=== PATIENT | female | born 1960 | race Caucasian/White ===

== ENCOUNTER → 2017-03-29 | Outpatient (CLI) | payer OTHER ==
[~2017-03-29] MED LIST: ADIPEX-P37.5 M1 PO; B12 IM; BENADRYL 25MG C25 MG PO; COSENTYX 150 MG/ML SC; IBUPROFEN400 MG PO; LOMOTIL 0.025 M1 TAB PO; REMICADE 100MG100 MG IJ; VALIUM5 MG PO; ZOFRAN4 MG PO; [UNRECOGNIZED DRUG - REMARK]
--- NOTE | 2017-04-03 11:27 | RADIOLOGY REPORT PS360 ---
DIG MAMM-SCREEN [facility]ATHLEEN W/CAD CAD Screening COMPARISON: Digital mammograms 06/19/2013 and 04/26/2015 INDICATION: There is a history of breast cancer in patient's maternal aunt TECHNIQUE: Standard CC and MLO images were obtained. R2 CAD reviewed. FINDINGS: Scattered fibroglandular densities are seen throughout both breasts. Again noted is a stable asymmetric nodular density just deep to the nipple right breast with smooth borders and this likely is a small cyst or fibroadenoma. There is a benign-appearing calcification left breast. There are stable nodular densities axillary tail right breast probably small intramammary nodes. There is no suspicious lesion and there are no suspicious microcalcifications. IMPRESSION: However fatty parenchyma no suspicious lesion seen recommend yearly follow-up BI-RADS CATEGORY: 2_Benign RECOMMENDED FOLLOWUP: 12M 12 MONTH FOLLOW-UP (A letter has been sent to the patient regarding results of the study.)
== END ==
LOC: RAD 08:23
DX: Z12.31 Encounter for screening mammogram for malignant neoplasm of breast (principal)
CPT/HCPCS: G0202